=== PATIENT | female | born 1940 | race Native Hawaiian/Other Pacific Islander ===

== ENCOUNTER 2022-10-07 10:17 | Outpatient (CLI) | payer OTHER | END 2022-10-07 20:36 | disposition home or self-care (01) | LOC: MAMMO 10:17 | PROVIDERS: ATTEND Nurse Practitioner Primary Care | DX: Z12.31 Encounter for screening mammogram for malignant neoplasm of breast (principal) ==

== ENCOUNTER 2022-11-09 11:35 | Outpatient (CLI) | payer OTHER | END 2022-11-09 18:55 | disposition home or self-care (01) | LOC: RAD 11:35 | PROVIDERS: ATTEND Nurse Practitioner Family | DX: Z01.818 Encounter for other preprocedural examination (principal) | CPT/HCPCS: 93005 ==

== ENCOUNTER 2023-01-02 11:18 | Outpatient (CLI) | payer OTHER ==
[2023-01-02 11:42] LABS: PLATELET COUNT 141 K/uL (152-353)
[2023-01-02 11:46] LABS: POTASSIUM 3.4 mmol/L (3.6-5.2)
== END 2023-01-02 18:58 | disposition home or self-care (01) ==
LOC: LABW 11:18
PROVIDERS: ATTEND Nurse Practitioner Family
DX: U07.1 COVID-19 (principal)
CPT/HCPCS: 36415; 80053; 85027

== ENCOUNTER 2023-03-27 10:04 | Outpatient (CLI) | payer OTHER | END 2023-03-27 19:05 | disposition home or self-care (01) | LOC: RAD 10:04 | PROVIDERS: ATTEND Nurse Practitioner Family | DX: S60.221A Contusion of right hand, initial encounter (principal); S80.01XA Contusion of right knee, initial encounter; S00.83XA Contusion of other part of head, initial encounter; Y92.89 Other specified places as the place of occurrence of the external cause ==